=== PATIENT | male | born 1995 | race Caucasian/White ===

== ENCOUNTER 2017-11-03 06:35 | Emergency (ER) | payer SELFPAY ==
[2017-11-03] MEDS: ONDANSETRON 4 MG INJ IM (06:57)
[2017-11-03] MEDS: HYDROmorphONE 2 MG/ML SYG IM (06:58)
[2017-11-03] MEDS: ONDANSETRON (ODT) 4 MG TAB ODT (06:59)
[2017-11-03] MEDS: HYDROCODONE/APAP (10/325) TAB PO (07:00)
== END 2017-11-03 08:59 | disposition home or self-care (01) ==
LOC: E/R 08:59
DX: S02.32XA Fracture of orbital floor, left side, initial encounter for closed fracture (principal); F17.210 Nicotine dependence, cigarettes, uncomplicated; R40.2142 Coma scale, eyes open, spontaneous, at arrival to emergency department; R40.2252 Coma scale, best verbal response, oriented, at arrival to emergency department; R40.2362 Coma scale, best motor response, obeys commands, at arrival to emergency department; Y09 Assault by unspecified means; Y92.9 Unspecified place or not applicable
CPT/HCPCS: 12011; 70450; 70486; 72125; 96372; 99285-25